=== PATIENT | female | born 1960 | race Caucasian/White ===

== ENCOUNTER 2017-06-09 07:09 | Emergency (ER) | payer BC ==
[2017-06-09 08:05] LABS: CHLORIDE,CL 103 mmol/L (98-107); SODIUM,NA 140 mmol/L (136-145)
--- NOTE | 2017-06-10 17:10 | EDM.PDOC ---
ED HPI GENERAL MEDICAL PROBLEM - General Chief Complaint: Cardiovascular Problem Stated Complaint: ER Time Seen by Provider: 06/09/17 07:09 Source of Information: Reports: Patient History Limitations: Reports: No Limitations - History of Present Illness INITIAL COMMENTS - FREE TEXT/NARRATIVE: Pt. presents to the ER with complaints of rapid heart rate. She states that she developed these symptoms at approx. 0530 this AM. Denies fever or chills. She states that she has had issues with palpitations in the past, and also has a history or sarcoidosis. She underwent an echocardiogram last week at [facility] which was essentially normal. States that she is not experiencing any chest pain or shortness of breath. She states that the palpitations lasted approx. 30 min and resolved prior to arrival to the ER. Pt. heart rate at home was approx. 225 on a digital pulse oximeter. Onset: Today Onset Date: 06/10/17 Onset Time: 17:10 Location: Reports: Chest - Related Data Allergies Allergy/AdvReac Type Severity Reaction Status Date / Time No Known Drug Allergies Allergy Other Verified 01/16/14 23:21 Home Meds: Home Meds Aspirin [Adult Low Dose Aspirin EC] 81 mg PO DAILY 01/17/14 [History] Pantoprazole [Protonix] 40 mg PO DAILY #30 tab.cr 01/17/14 [Rx] Lisinopril [Lisinopril] 10 mg PO DAILY 06/09/17 [History] Mycophenolate Mofetil [Mycophenolate Mofetil] 4 tab PO BID 06/09/17 [History] predniSONE [Prednisone] 10 mg PO ASDIRECTED 06/09/17 [History] Past Medical History Cardiovascular History: Reports: Hypertension, Other (See Below) Other Cardiovascular History: tachycardia Gastrointestinal History: Reports: Gastritis, Irritable Bowel Syndrome 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: Endocrine/Metabolic History: Reports: Other (See Below) Other Endocrine/Metabolic History: sarcoidosis - Past Surgical History HEENT Surgical History: Reports: Eye Surgery Other HEENT Surgeries/Procedures: removal of left lacrimal gland of eye - sarcoidosis mass GI Surgical History: Reports: Appendectomy, Cholecystectomy Female Surgical History: Reports: Section Social & Family History - Tobacco Use Smoking Status *Q: Never Smoker Second Hand Smoke Exposure: No - Alcohol Use Days Per Week of Alcohol Use: 0 - Recreational Drug Use Recreational Drug Use: No ED ROS GENERAL - Review of Systems Review Of Systems: See Below Constitutional: Reports: No Symptoms HEENT: Reports: No Symptoms Respiratory: Reports: No Symptoms Cardiovascular: Reports: Palpitations, Other (tachycardia) Endocrine: Reports: No Symptoms GI/Abdominal: Reports: No Symptoms : Reports: No Symptoms Musculoskeletal: Reports: No Symptoms Skin: Reports: No Symptoms Neurological: Reports: No Symptoms Psychiatric: Reports: No Symptoms Hematologic/Lymphatic: Reports: No Symptoms Immunologic: Reports: No Symptoms ED EXAM, GENERAL - Physical Exam Exam: See Below Exam Limited By: No Limitations General Appearance: Alert, WD/WN, No Apparent Distress Respiratory/Chest: No Respiratory Distress, Lungs Clear, Normal Breath Sounds, No Accessory Muscle Use, Chest Non-Tender Cardiovascular: Normal Peripheral Pulses, No Edema, No JVD, No Murmur, No Rub, Tachycardia GI/Abdominal: Normal Bowel Sounds, Soft, Non-Tender, No Organomegaly, No Distention, No Abnormal Bruit, No Mass Back Exam: Normal Inspection, Full Range of Motion, NT Extremities: Normal Inspection, Normal Range of Motion, Non-Tender, Normal Capillary Refill, No Pedal Edema Neurological: Alert, Oriented, CN II-XII Intact, Normal Cognition, Normal Gait, Normal Reflexes, No Motor/Sensory Deficits Skin Exam: Warm, Dry, Intact, Normal Color, No Rash EKG INTERPRETATION Rhythm: NSR Eva: Normal P-Wave: Present QRS: Normal ST-T: Normal QT: Normal Course - Vital Signs Last Recorded V/S: Last Vital Signs Temp 36.1 C 06/09/17 07:09 Pulse 94 06/09/17 08:53 Resp 16 06/09/17 08:53 BP 146/95 H 06/09/17 08:53 Pulse Ox 98 06/09/17 08:53 - Orders/Labs/Meds Labs: Laboratory Tests 06/09/17 06/09/17 06/09/17 Range/Units 07:36 07:36 07:36 WBC 13.5 H (4.0-10.0) x10^3/uL RBC 4.43 (4.00-5.50) x10^6/uL Hgb 14.6 (12.0-16.0) g/dL Hct 43.2 (33.0-47.0) % MCV 97.5 H D (78.0-93.0) fL MCH 33.0 H (26.0-32.0) pg MCHC 33.8 (32.0-36.0) g/dL RDW Coeff of Jenelle 14.9 (10.0-15.0) % Plt Count 378 (130-400) x10^3/uL Neut % (Auto) 59.8 (50.0-80.0) % Lymph % (Auto) 31.2 (25.0-50.0) % [place] % (Auto) 8.5 (2.0-11.0) % Eos % (Auto) 0.2 (0.0-4.0) % Baso % (Auto) 0.3 (0.2-1.2) % PT 9.6 L (9.8-11.8) SEC INR 0.9 L (2.0-3.5) Sodium 140 (136-145) mmol/L Potassium 3.5 (3.5-5.1) mmol/L Chloride 103 (98-107) mmol/L Carbon Dioxide 25 (21-32) mmol/L BUN 16 (7-18) mg/dL Creatinine 1.0 (0.55-1.02) mg/dL Est Cr Clr Drug Dosing TNP Estimated GFR (MDRD) 58 Glucose 136 H (74-106) mg/dL Calcium 9.7 (8.5-10.1) mg/dL Corrected Calcium 9.86 (8.5-10.1) mg/dL Phosphorus 4.2 (2.6-4.7) mg/dL Magnesium 2.2 (1.8-2.4) mg/dL Total Bilirubin 0.6 (0.2-1.0) mg/dL AST 20 (15-37) U/L ALT 48 (14-59) U/L Alkaline Phosphatase 66 (46-116) U/L Troponin I < 0.017 (<=0.056) ng/mL C-Reactive Protein < 0.2 (<=0.9) mg/dL Total Protein 7.3 (6.4-8.2) g/dL Albumin 3.8 (3.4-5.0) g/dL Globulin 3.5 Albumin/Globulin Ratio 1.09 Departure - Departure Time of Disposition: 09:05 Disposition: Home, Self-Care 01 Condition: Good Clinical Impression: Tachycardia - Discharge Information Instructions: Palpitations, [id number] Referrals: Gale Rouse PA-C [Primary Care Provider] - Forms: ED Department Discharge Additional Instructions: The clinic will set you up for a holter study today. Follow-up with Gale Rouse in 7-10 days. Return to ER if you have recurrence of the rapid heart rate. Care Plan Goals: Pt. was in a sinus rhythm at a normal rate during her entire stay in the ER.
== END 2017-06-09 09:05 | disposition home or self-care (01) ==
LOC: VM.ED 07:09
DX: R00.0 Tachycardia, unspecified (principal); I10 Essential (primary) hypertension; Z79.899 Other long term (current) drug therapy; Z79.82 Long term (current) use of aspirin
CPT/HCPCS: 36415; 71046; 80053; 83735; 84100; 84484; 85025; 85610; 86140; 93005; 99285